=== PATIENT | female | born 1960 | race Hispanic/Latino ===

== ENCOUNTER 2016-10-30 05:58 | Inpatient (IN) | payer OTHER ==
[~2016-10-30 05:58] MED LIST: APRESOLINE IV PRN; DILAUDID IV PRN; MORPHINE IV PRN; MYLICON PO PRN; NORCO PO PRN; REGLAN IV PRN; ZOFRAN IV PRN
[2016-10-30] MEDS ORDERED: FLAGYL 500 MG/100 ML 500 MG/100 ML BAG IV NR ×2 (06:00→15:00)
[2016-10-30] MEDS ORDERED: TRANSDERM-SCOP TD SCH (06:00)
[2016-10-30] MEDS ORDERED: LOVENOX SUB-Q NR ×2 (06:00→15:00)
[2016-10-30] MEDS ORDERED: ANCEF/STERILE WATER 2 GM/20 ML 2 GM/20 ML SYRINGE IV NR (06:00)
--- NOTE | 2016-10-30 14:04 | Anesthesia Consultation ---
Anesthesia Consult and Med Hx Date of service: 10/30/16 - Airway Anesthetic Teeth Evaluation: Good, Partials ROM Head & Neck: Adequate Mental/Hyoid Distance: Adequate Mallampati Class: Class II Intubation Access Assessment: Good - Pulmonary Exam CTA: Yes - Cardiac Exam Cardiac Exam: No Murmur - Pre-Operative Health Status ASA Pre-Surgery Classification: ASA2 Proposed Anesthetic Plan: General - Central Nervous System Hx Psychiatric Problems: Yes - Other Systems Hx Alcohol Use: Yes (occas) Hx Cancer: No
[2016-10-30] MEDS: LACTATED RINGERS 1,000 ML IV SCH ×2 (14:05→23:45)
[2016-10-30] MEDS ORDERED: VERSED IV NR (15:00)
[2016-10-30] MEDS ORDERED: PEPCID PO NR ×2 (15:00)
[2016-10-30] MEDS ORDERED: PEPCID IV NR (15:00)
[2016-10-30] MEDS ORDERED: XYLOCAINE MPF 2% ONE (15:11)
[2016-10-30] MEDS ORDERED: ZEMURON IV ONE ×2 (15:11→17:19)
[2016-10-30] MEDS ORDERED: DIPRIVAN 10 MG/ML IV ONE (15:12)
[2016-10-30] MEDS ORDERED: DILAUDID ONE (15:12)
--- NOTE | 2016-10-30 15:26 | Anesthesia Day of Surgery ---
Anesthesia Day of Surgery - Day of Surgery Patient Examined: Yes Patient H&P Reviewed: Yes Patient is NPO: Yes
[2016-10-30] MEDS ORDERED: SUBLIMAZE ONE (15:32)
[2016-10-30] MEDS ORDERED: MARCAINE-EPI 0.5%-1:200,000 INFILTRATI ONE ×2 (16:03→16:56)
[2016-10-30] MEDS ORDERED: XYLOCAINE 1% 20 mL ONE (16:03)
[2016-10-30] MEDS ORDERED: NACL 0.9% IR ONE ×2 (16:12)
[2016-10-30] MEDS ORDERED: ePHEDrine SULFATE ONE (16:37)
[2016-10-30] MEDS ORDERED: XYLOCAINE 1% 20 mL INFILTRATI ONE (16:57)
[2016-10-30] MEDS ORDERED: NEOSTIGMINE ONE (19:03)
[2016-10-30] MEDS ORDERED: ROBINUL ONE (19:03)
[2016-10-30] MEDS: SUBLIMAZE IV PRN ×2 (19:42→20:05)
[2016-10-30 21:23] LABS: Basophils % (Auto) 0.4 % (0.0-1.8); Eosinophils % (Auto) 0.5 % (0.0-4.3); Hematocrit 39.8 % (30.3-42.9); Hemoglobin 12.8 gm/dl (10.1-14.3); Mean Corpuscular HGB Conc 32 % (30-34); Mean Corpuscular Hemoglobin 27 pg (28-32); Mean Corpuscular Volume 83 fl (79-97); Platelet Count 274 K/mm3 (140-440); Red Blood Count 4.79 M/mm3 (3.65-5.03); Red Cell Distribution Width 16.2 % (13.2-15.2); White Blood Count 14.2 K/mm3 (4.5-11.0)
--- NOTE | 2016-10-30 21:46 | Post Anesthesia Evaluation ---
- Post Anesthesia Evaluation Patient Participated: Yes Airway Patent: Yes Stable Respiratory Function: Yes Nausea/Vomiting: No Temp > 96.8F: Yes Pain Manageable: Yes Adequeate Hydration: Yes Anesthesia Complications: No
[2016-10-30 21:47] LABS: Albumin 3.8 g/dL (3.9-5); Albumin/Globulin Ratio 1.2 %; Bilirubin,Total 0.3 mg/dL (0.1-1.2); Calcium 8.7 mg/dL (8.4-10.2); Chloride 102.2 mmol/L (98-107); Potassium 3.7 mmol/L (3.6-5.0)
[2016-10-30] MEDS: TORADOL IV PRN (23:44)
[2016-10-31 03:47] LABS: Basophils % (Auto) 0.8 % (0.0-1.8); Eosinophils % (Auto) 0.3 % (0.0-4.3); Hematocrit 35.6 % (30.3-42.9); Mean Corpuscular HGB Conc 34 % (30-34); Mean Corpuscular Hemoglobin 28 pg (28-32); Mean Corpuscular Volume 82 fl (79-97); Platelet Count 253 K/mm3 (140-440); Red Blood Count 4.33 M/mm3 (3.65-5.03); Red Cell Distribution Width 16.1 % (13.2-15.2); White Blood Count 10.1 K/mm3 (4.5-11.0)
[2016-10-31 04:12] LABS: Albumin 3.3 g/dL (3.9-5); Albumin/Globulin Ratio 1.1 %; BUN/Creatinine Ratio 17.27; Bilirubin,Total 0.3 mg/dL (0.1-1.2); Calcium 8.4 mg/dL (8.4-10.2); Chloride 103.7 mmol/L (98-107); Potassium 3.8 mmol/L (3.6-5.0); Total Protein 6.3 g/dL (6.3-8.2)
[2016-10-31] MEDS: TORADOL IV PRN ×3 (09:37→21:39)
--- NOTE | 2016-10-31 12:17 | Admit Criteria Form ---
Admission Criteria Documentation: AMBULATORY SURGERY EXCEPTION CRITERIA Ambulatory Surgery Exception Criteria ( Place 'X' for any and all applicable criteria): Surgery or procedure performed on ambulatory basis may require inpatient stay for[A] ANY ONE of the following(1)(2)(3)(4)(5)(6)(7)(8)(9): [X] I. A preoperative situation, condition, or finding that warrants inpatient stay as indicated by ANY ONE of the following: [X] a) Inpatient care needed because of severity of a disease or condition rather than the surgery (eg, severe cardiac or respiratory disease, severe infection) (15) (16 ) (17) (18) [] b) Emergent procedure (eg, angioplasty for acute ischemia)(19) [] c) Complex surgical approach or situation as indicated by ANY ONE of the following(3): [] i) Open approach needed instead of usual endoscopic, transcatheter, or other less invasive procedure [] ii) Difficult approach because of previous operation [] iii) Airway monitoring required after open neck procedures(20)(21) [] iv) Large mass requiring unusually extensive dissection [] v) Additional complicating feature requiring inpatient care (eg, drain management)(22(23): [] d) Major surgery in a pt with high anesthetic risk as indicated by ANY ONE of the following (2)(3)(5)(7)(8): [] i) ASA risk class III or higher (severe systemic disease impairing function) [D] [] ii) Advanced age (eg, older than 85 years)(14)(24) [] iii) Symptomatic heart failure(25) [] iv) Symptomatic asthma or COPD(8)(21) [] v) Morbid obesity with hemodynamic or respiratory problems(20)( 21)(26)(27) [] vi) Obstructive sleep apnea(20)(21) [] vii) Former premature infants who are younger than 60 weeks [] viii) High risk for severe postoperative abnormalities (eg, severe postoperative hypocalcemia after parathyroidectomy for severe hyperparathyroidism)(27)( 28) [] ix) Unstable angina(25) [] e) Drug-related risk requiring inpatient stay as indicated by ANY ONE of the following(5)(10)(14)(32)(33) [] i) Procedure requires discontinuing drugs or other therapy (eg , antiarrhythmic medication, antiseizure medication), which necessitates inpatient observation or treatment.(18)(31) [] ii) Major surgery and high risk drug use as indicated by ANY ONE of the following: [] 1) Active abuse of cocaine or similar drug [] 2) Monoamine oxidase inhibitor use [] 3) Other drug identified as posing risk [] f) Inadequate outpatient care situation as indicated by ANY ONE of the following(5)(10)(14)(32)(33) [] i) Patient lives remote from medical facility and procedure has urgent complication potential, and temporary nearby residence cannot be arranged [] ii) Patient will have postprocedure incapacitation and inadequate assistance at home, or alternative level of care cannot be arranged. [] iii) Patient will have long general anesthesia or procedure side effect resolution time, and competent person to stay with patient on first postoperative night at home or alternative level of care cannot be arranged. []iv) Other inadequate outpatient situation that cannot be handled by other means [] II. A perioperative event, condition, or finding that warrants inpatient stay as indicated by ANY ONE of the following (1)(2)(3): [] a) Inadequate physiologic recovery: cardiovascular, respiratory, or hemodynamic status not normal or near preoperative baseline(18) [] b) Hemodynamic instability [] c) Patient not alert with near normal or baseline mental status [] d) Temperature not normal or as expected and not appropriate for outpatient treatment of condition [] e) Ambulatory or appropriate activity level status not yet achieved post procedure [E](34)(35)(36) [] f) Operative site not appropriate (eg, unexpected or excessive drainage or bleeding) [] g) Postoperative effects not resolved or adequately managed (eg, significant pain or vomiting not appropriate for outpatient or next level of care)(10)(12) [] h) Complicating features requiring inpatient care as indicated by ANY ONE of the following(37): [] i) Severe complications of procedure (eg, bowel injury, airway compromise, vascular injury,severe hemorrhage) [] ii) Extensive (eg, dissection far beyond usual scope of procedure ) or prolonged (eg, 120 minutes beyond usual) surgery needed requiring inpatient postoperative care [] iii) Conversion to an open or complex procedure that requires inpatient care (eg, open vs laparoscopic cholecystectomy, abdominal vs vaginal hysterectomy)(38) [] iv) Comorbid condition or test result identified during or post procedure that requires inpatient care (7) [] v) Malignant hyperthermia(30) [] vi) Other complicating feature requiring inpatient care(22)(23) Inpatient stay may be needed until ALL of the following are present (1)(2)(3)(4) (5)(6)(10)(14)(33)(40): []a) Physiologic recovery: cardiovascular, respiratory, and hemodynamic status normal or near preoperative baseline []b) Hemodynamic stability []c) Patient alert, with near normal or baseline mental status []d) Temperature appropriate: patient afebrile or temperature appropriate for outpt treatment of condition []e) Activity level appropriate: ambulatory or appropriate activity level post procedure []f) Operative site appropriate as indicated by ALL of the following: []i) Site dry or with expected drainage []ii) Any blood noted is as expected for procedure. []g) Postoperative effects resolved or managed as indicated by ALL of the following: []i) Pain management appropriate for outpatient (or next level of) care(10) []ii) Minimal nausea and vomiting: if present, successfully treated with oral medication(12) []iii) Headache, dizziness, or drowsiness (if present) are mild. []h) Voiding status acceptable as indicated by ANY ONE of the following: []i) Voiding spontaneously []ii) No voiding but instructions given for follow-up in 6 to 8 hours []iii) Urinary catheter in place, and instructions given for follow-up []i) Complicating features requiring inpatient care manageable at a lower level of care(37) []j) Comorbid conditions manageable at a lower level of care(37) The original [employer] content created by [employer] has been revised. The portions of the content which have been revised are identified through the use of italic text or in bold, and [employer] has neither reviewed nor approved the modified material. All other unmodified content is copyright [employer]. Please see references footnoted in the original [employer] edition 2016 Admission Criteria Met: Yes
[2016-10-31] MEDS ORDERED: LACTATED RINGERS 1,000 ML IV SCH (19:00)
--- NOTE | 2016-10-31 20:38 | Progress Note ---
Assessment and Plan - Patient Problems (1) Morbid (severe) obesity due to excess calories Current Visit: Yes Status: Acute Plan to address problem: 55 y.o. F s/p lap nissin revision with lap gastric bypass, POD 1 Pt doing better this evening compared to during the day. She is able to tolerate liquids and ambulate more. Will add liquid tylenol for pain as she is allergic to opiods. Neuropathy: liquid gabapentin ordered for today. continue ambulation continue use of IS likely dc in am if patient's pain is controlled, she is ambulating and tolerating diet. (2) Wen esophagus Current Visit: Yes Status: Acute Qualifiers: Wen's esophagus type: B Subjective Narrative: Pt seen and examined at bedside. Pt has left mid abd. pain but recently walked. She has not complained of pain all day. She denies n/v. She is tolerating liquids in the evening compared to during the day. Her is at bedside. Objective Vital Signs - 12hr 10/31/16 10/31/16 10/31/16 13:22 15:30 19:00 Temperature 98.1 F 97.7 F Pulse Rate 68 63 Respiratory 18 20 Rate Blood Pressure 97/58 112/76 O2 Sat by Pulse 95 100 Oximetry - General physical appearance well developed, well nourished, no distress - Respiratory normal expansion, normal respiratory effort - Abdomen soft, other (dressings min. blood stained. tender at incision sites. echymosis at umbilicus. no rebound. obese. ) - Integumentary no rash - Neurologic normal coordination - Musculoskeletal normal posture - Psychiatric oriented to time - Labs 10/31/16 03:23 10/31/16 03:23 Diabetes panel 10/30/16 10/31/16 Range/Units 21:10 03:23 Sodium 140 140 (137-145) mmol/L Potassium 3.7 3.8 (3.6-5.0) mmol/L Chloride 102.2 103.7 (98-107) mmol/L Carbon Dioxide 24 23 (22-30) mmol/L BUN 21 H 19 H (7-17) mg/dL Creatinine 1.0 1.1 (0.7-1.2) mg/dL Glucose 110 H 101 H (65-100) mg/dL Calcium 8.7 8.4 (8.4-10.2) mg/dL AST 86 H 71 H (5-40) units/L ALT 93 H 75 H (7-56) units/L Alkaline Phosphatase 108 93 (35-129) units/L Total Protein 7.0 6.3 (6.3-8.2) g/dL Albumin 3.8 L 3.3 L (3.9-5) g/dL Calcium panel 10/30/16 10/31/16 Range/Units 21:10 03:23 Calcium 8.7 8.4 (8.4-10.2) mg/dL Albumin 3.8 L 3.3 L (3.9-5) g/dL Pituitary panel 10/30/16 10/31/16 Range/Units 21:10 03:23 Sodium 140 140 (137-145) mmol/L Potassium 3.7 3.8 (3.6-5.0) mmol/L Chloride 102.2 103.7 (98-107) mmol/L Carbon Dioxide 24 23 (22-30) mmol/L BUN 21 H 19 H (7-17) mg/dL Creatinine 1.0 1.1 (0.7-1.2) mg/dL Glucose 110 H 101 H (65-100) mg/dL Calcium 8.7 8.4 (8.4-10.2) mg/dL Adrenal panel 10/30/16 10/31/16 Range/Units 21:10 03:23 Sodium 140 140 (137-145) mmol/L Potassium 3.7 3.8 (3.6-5.0) mmol/L Chloride 102.2 103.7 (98-107) mmol/L Carbon Dioxide 24 23 (22-30) mmol/L BUN 21 H 19 H (7-17) mg/dL Creatinine 1.0 1.1 (0.7-1.2) mg/dL Glucose 110 H 101 H (65-100) mg/dL Calcium 8.7 8.4 (8.4-10.2) mg/dL Total Bilirubin 0.30 0.30 (0.1-1.2) mg/dL AST 86 H 71 H (5-40) units/L ALT 93 H 75 H (7-56) units/L Alkaline Phosphatase 108 93 (35-129) units/L Total Protein 7.0 6.3 (6.3-8.2) g/dL Albumin 3.8 L 3.3 L (3.9-5) g/dL
[2016-10-31] MEDS ORDERED: NEURONTIN PO SCH (20:40)
[2016-10-31] MEDS: TYLENOL PO PRN (21:34)
[2016-11-01 01:24] LABS: Basophils % (Auto) 0.6 % (0.0-1.8); Eosinophils % (Auto) 3.2 % (0.0-4.3); Hematocrit 33.6 % (30.3-42.9); Hemoglobin 11.1 gm/dl (10.1-14.3); Mean Corpuscular HGB Conc 33 % (30-34); Mean Corpuscular Hemoglobin 27 pg (28-32); Mean Corpuscular Volume 83 fl (79-97); Platelet Count 237 K/mm3 (140-440); Red Blood Count 4.05 M/mm3 (3.65-5.03); Red Cell Distribution Width 16.3 % (13.2-15.2); White Blood Count 10.5 K/mm3 (4.5-11.0)
[2016-11-01] MEDS: LOVENOX SUB-Q SCH ×2 (01:27→09:10)
[2016-11-01 01:41] LABS: Calcium 8.3 mg/dL (8.4-10.2); Chloride 101.8 mmol/L (98-107); Potassium 3.3 mmol/L (3.6-5.0)
[2016-11-01] MEDS ORDERED: SYNTHROID PO SCH (06:00)
[2016-11-01] MEDS: TYLENOL PO PRN (06:07)
[2016-11-01] MEDS: TORADOL IV PRN (06:08)
[2016-11-01 07:58] VITALS: BP 96/66
[2016-11-01] MEDS ORDERED: K-DUR PO NR (08:00)
--- NOTE | 2016-11-03 17:28 | Operative Report ---
PREOPERATIVE DIAGNOSES: 1. Morbid obesity. 2. Status post Manuela fundoplication with recurrent gastroesophageal reflux disease and failed Manuela fundoplication. 3. Wen's esophagus. 4. Hiatal hernia. 5. Gastroesophageal reflux disease. 6. Hypothyroidism. POSTOPERATIVE DIAGNOSES: 1. Morbid obesity. 2. Status post Manuela fundoplication with recurrent gastroesophageal reflux disease and failed Manuela fundoplication. 3. Wen's esophagus. 4. Hiatal hernia. 5. Gastroesophageal reflux disease. 6. Hypothyroidism. 7. Intra-abdominal adhesions and relatively large 4 cm hiatal hernia. PROCEDURE: Laparoscopic lysis of adhesions, reduction of Manuela fundoplication from the hiatal hernia, closure of the hiatal hernia. The patient had a laparoscopic gastric bypass. SURGEON: Baltazar Silva M.D. NIGHT MONITOR: Roger Toledo. ANESTHESIA: General. DESCRIPTION OF PROCEDURE: The patient was placed on the operating table in the dorsal supine, satisfactory induction of general anesthesia, the abdomen was prepped using Hibiclens solution and scrubbed and after air dried, the patient was then prepped and draped in the usual fashion. Then, after a timeout and verification of the correct procedure, we then began the procedure. Then, using a sharp skin knife, a skin incision was made in the umbilicus and a Veress needle was placed with insufflation of CO2. After adequate insufflation of CO2 was accomplished inside the abdominal cavity, a 10 mm trocar was then placed inside the umbilicus and inspection of the intra-abdominal contents was accomplished. Under direct vision, several of the trocars then placed inside the abdominal cavity to access the intra-abdominal contents. Some of the adhesions were taken down to access, the liver bed and the liver was then retracted cephalad to and the patient placed in reverse Trendelenburg to expose the patient's stomach and previous Manuela fundoplication. The patient had a history of Wen's esophagus that she had been followed by her library aide with no evidence of progression to severe ____. She is morbidly obese and she had recurrent esophageal reflux and this recurrent esophageal reflux was because she had a breakdown of her hiatus and recurrent hiatal hernia and the wrap failed to prevent the reflux, which exacerbated her Wen's esophagus. Our goal was therefore to treat the obesity and to treat the reflux at the same time by performing a laparoscopic Lauren-en-Y gastric bypass and repairing the hiatal hernia defect. After the adhesions were taken down and the hiatus was identified, we noted that the Manuela wrap had migrated up into the hiatus up into the chest cavity. The hiatus was dissected free off the wrap and the wrap was pulled back down into the abdominal cavity. After the Manuela wrap was pulled back down into the abdominal cavity, the 360-degree wrap was then dissected until we could identify the sutures of the fundoplication. These sutures were then cut and the wrap was freed up until the retrograde portion of the fundus was taken back around into its normal anatomic position. After the wrap was completely taken down, we then completely freed up the remaining portion of the fundus of the stomach to completely bring the esophagus back inside the abdominal cavity to where 3-4 cm of the esophagus was exposed to the intra-abdominal pressure. We then closed the crura of the diaphragm by reapproximating the crura using interrupted simple sutures of 0 Surgidac. After the diaphragmatic crura was then closed, we then proceeded to perform the Lauren-en-Y gastric bypass. The Lauren-en-Y gastric bypass was then performed by turning attention to the small bowel and the ligament of Treitz was identified, and following the ligament of Treitz, the small bowel was then run for approximately 150 cm distal to the ligament of Treitz along the biliopancreatic limb, and at this point, the biliopancreatic limb was transected. The distal part of this transection was then run for approximately 100 cm and this was the alimentary of the Lauren-en-Y limb. This particular Lauren-en-Y limb was to be taken up to the manufactured pouch. We then turned our attention to the stomach and dissection of the gastric pouch was begun. We sized the gastric pouch to make it approximately 30 mL in diameter. Along the lesser curvature, we made a tunnel along the lesser curvature using the hook electrocautery and made a tunnel behind the stomach using blunt tissue dissection until we were able to make a tunnel behind the stomach that exited out at the angle of His. Then, using a blue load and making sure that there was nothing within the stomach, we then began to transect across the stomach to make a pouch of approximately 30-40 mL. Using a blue load, we transected across the stomach to make the pouch up to the area of the incisura of the stomach. After the pouch was from the tazlina stomach, all the bleeding was controlled using the Bovie electrocautery. We then gathered the previously transected Lauren limb and brought it up to the pouch and secured it to the side of the pouch with a suture of 0 Surgidac. This stay suture was used to stabilize the pouch to the Lauren-en-Y limb. Then, we performed [id number] anastomosis by making an otomy in the gastric pouch and an otomy in the small bowel and then using a white load, a [id number] anastomosis was accomplished. After this anastomosis was performed, we then passed the scope to make an 8 mm gastrojejunostomy. The closure of the otomy was then performed by using the Oonair suturing device with a barbed suture of PDS with the scope within the gastrojejunostomy to make sure that we did not narrow the gastrojejunostomy too much. This was accomplished in a running fashion and this was performed in a 2-layer anastomosis. After the anastomosis was completed in 2 layers, we then controlled all bleeding and the anastomosis was then tested by filling the abdominal cavity with water and the alimentary limb was then clamped beneath the gastrojejunostomy and the anastomosis was submerged beneath water. With the scope above the level of the anastomosis, the scope was then used to blow air to the anastomosis with the distal bowel clamped to see if there was any leak. There were no bubbles or leaks identified, and therefore, the air was suctioned out and the bowel was released. The normal saline was then suctioned out. The abdominal cavity was then desufflated and the trocars were then removed, as was the liver retractor. The fascial defect of the umbilicus was closed using interrupted simple suture of #1 PDS and the skin was closed using interrupted subdermal sutures of 4-0 Monocryl. Steri-Strips and sterile dressings were applied to all the wounds and the patient tolerated the procedure well, was sent around to recovery room in satisfactory condition. JOB# [id number]/[email or web address]
== END 2016-11-01 13:06 | disposition home or self-care (01) | DRG 621 ==
LOC: 3A 10:48 → 2B-SURG 17:52
PROVIDERS: ADMIT Specialist; ATTEND Specialist
PROC: 0D164ZA Bypass Stomach to Jejunum, Percutaneous Endoscopic Approach (ICD-10-PCS; principal; 2016-10-30)
PROC: 0DQ44ZZ Repair Esophagogastric Junction, Percutaneous Endoscopic Approach (ICD-10-PCS; 2016-10-30)
PROC: 0BQS4ZZ (ICD-10-PCS; 2016-10-30)
PROC: 0BQR4ZZ (ICD-10-PCS; 2016-10-30)
DX: E66.01 Morbid (severe) obesity due to excess calories (principal); K22.70 Barrett's esophagus without dysplasia; K44.9 Diaphragmatic hernia without obstruction or gangrene; K21.9 Gastro-esophageal reflux disease without esophagitis; E03.9 Hypothyroidism, unspecified; K66.0 Peritoneal adhesions (postprocedural) (postinfection); K59.00 Constipation, unspecified; F32.9 Major depressive disorder, single episode, unspecified; K57.30 Diverticulosis of large intestine without perforation or abscess without bleeding; M25.50 Pain in unspecified joint; Z68.38 Body mass index [BMI] 38.0-38.9, adult; Z90.710 Acquired absence of both cervix and uterus
CPT/HCPCS: 36415; 80048; 80053; 83735; 85025; A4217; C9250; J0690; J1170; J1650; J1885; J2250; J2405; J2704; J2710; J2765; J3010; J7120